=== PATIENT | male | born 1950 | race Caucasian/White ===

== ENCOUNTER 2020-10-15 07:40 | Emergency (ER) | payer MEDICARE ==
[~2020-10-15 07:40] MED LIST: CARDURA2 MG PO; PERCOCET 5-3251 EACH PO; POTASSIUM99 MG PO; VITAMIN B122500 MC1 PO
[2020-10-15 08:43] LABS: BASOPHIL 0.4 % (0-2); EOSINOPHIL 0.5 % (0-7); HGB 14.4 g/dl (13.2-18.0); LYMPHOCYTE 7.6 % (15-48); MCH 31.2 pg (25.0-31.0); MCHC 34.3 g/dL (32.0-36.0); MCV 91.1 fL (78.0-100.0); MONOCYTE 6.7 % (0-12); MPV 11.4 fL (6.0-9.5); NEUTROPHIL 84.4 % (41-80); NRBC 0; PLT 217 K/uL (150-400); RBC 4.61 M/uL (4.70-6.00); RDW 11.3 % (11.5-14.0); WBC 18.1 K/uL (4.0-10.5)
[2020-10-15 08:48] LABS: INR 1.05 (0.9-1.2); PTT 30.3 SECONDS (22.2-34.7)
[2020-10-15 08:55] LABS: ALBUMIN 3.6 g/dL (3.4-5.0); BILIRUBIN - TOTAL 0.4 mg/dL (0.2-1.0); BUN/CREAT RATIO (CALC) 9.2 RATIO; CREATININE 0.76 mg/dL (0.67-1.17); GLOBULIN (CALCULATION) 3.9 g/dL; IRON % SATURATION 18.1 %SAT (20-50); TOTAL PROTEIN 7.5 g/dL (6.4-8.2)
[2020-10-15 09:09] LABS: LACTIC ACID 1.2 mmol/L (0.4-1.9)
[2020-10-15 10:12] LABS: BILIRUBIN NEGATIVE (NEGATIVE); BLOOD NEGATIVE Ery/uL (NEGATIVE); CLARITY CLEAR (CLEAR); COLOR YELLOW (YELLOW); GLUCOSE (U) NORMAL (NORMAL); LEUKOCYTES NEGATIVE Leu/uL (NEGATIVE); NITRITE NEGATIVE (NEGATIVE); PROTEIN NEGATIVE (NEGATIVE); UROBILINOGEN 0.2 mg/dL (0.2-1.0)
[2020-11-08] MEDS ORDERED: FOLIC ACID1 MG PO (08:41)
[2020-11-08] MEDS ORDERED: LOVASTATIN10 MG PO (08:41)
[2020-11-08] MEDS ORDERED: CARAFATE1 GM PO (08:42)
[2020-11-08] MEDS ORDERED: OXYCODON-ACETA1 EAC1 PO (08:43)
[2020-11-08] MEDS ORDERED: VITAMIN B-121000 MC1 PO (08:44)
[2020-11-08] MEDS ORDERED: FLONASE ALLER15.8 ML (08:45)
== END 2020-10-15 13:00 | disposition other institution (70) ==
LOC: FER 07:40
PROVIDERS: Emergency Medicine
DX: K27.0 Acute peptic ulcer, site unspecified, with hemorrhage (principal); I10 Essential (primary) hypertension; J44.9 Chronic obstructive pulmonary disease, unspecified; Z87.891 Personal history of nicotine dependence; Z20.822 Contact with and (suspected) exposure to COVID-19
CPT/HCPCS: 36415; 71045; 80053; 81003; 83540; 83550; 83605; 83690; 84145; 85025; 85610; 85730; 86850; 86900; 86901; 93005; C9113; J1170; J2405; J7030; Q9967; U0002

== ENCOUNTER → 2020-11-11 | Day surgery (SDC) | payer MEDICARE ==
[~2020-11-11] MED LIST changes: +ARNUITY ELLIPT50 MCG; +B COMPLEX1 EACH PO; +CARAFATE1 GM PO; +COMPAZINE10 MG PO; +CYCLOBENZAPRINE10 MG PO; +DEXAMETHASONE 2M2 MG PO; +FLONASE ALLER15.8 ML; +FOLIC ACID1 MG PO; +LASIX20 MG PO; +LOVASTATIN10 MG PO; +OXYCODON-ACETA1 EAC1 PO; +PERCOCET 7.5-31 EACH PO; +POTASSIUM20 MEQ/11 PO; +PROTONIX 40MG T40 MG PO; +VITAMIN B-121000 MC1 PO
[2020-11-11 11:45] LABS: BUN/CREAT RATIO (CALC) 17.4 RATIO; CREATININE 0.69 mg/dL (0.67-1.17); POTASSIUM 4.2 mmol/L (3.5-5.1)
== END | disposition home or self-care (01) ==
LOC: FAS 10:34
PROVIDERS: Anesthesiology
DX: C16.9 Malignant neoplasm of stomach, unspecified (principal); I10 Essential (primary) hypertension; E78.5 Hyperlipidemia, unspecified; M10.9 Gout, unspecified; I73.9 Peripheral vascular disease, unspecified
CPT/HCPCS: 36415; 71045; 76000; 80048; C1788; J0640; J0690; J1453-JG; J1644; J2001; J2250; J2370; J2405; J2704; J3010; J7050; J7060; J7120; J9171; J9190; J9263

== ENCOUNTER 2020-11-26 14:06 | Inpatient (IN) | payer MEDICARE ==
[~2020-11-26] VITALS: Ht 180.3 cm; Wt 79.5 kg
[~2020-11-26 14:06] MED LIST changes: -ARNUITY ELLIPT50 MCG; -B COMPLEX1 EACH PO; -COMPAZINE10 MG PO; -CYCLOBENZAPRINE10 MG PO; -DEXAMETHASONE 2M2 MG PO; -LASIX20 MG PO; -PERCOCET 7.5-31 EACH PO; -POTASSIUM20 MEQ/11 PO; -PROTONIX 40MG T40 MG PO
[2020-11-26 15:57] LABS: EOSINOPHIL 0 % (0-7); HCT 33.1 % (42.0-52.0); LYMPHOCYTE 15.4 % (15-48); MCH 29.8 pg (25.0-31.0); MCHC 33.2 g/dL (32.0-36.0); MCV 89.7 fL (78.0-100.0); MPV 11.2 fL (6.0-9.5); NEUTROPHIL 49.8 % (41-80); NRBC 0; PLT 188 K/uL (150-400); RBC 3.69 M/uL (4.70-6.00); RDW 11.3 % (11.5-14.0)
[2020-11-26 15:58] LABS: WBC 6.8 K/uL (4.0-10.5)
[2020-11-26 15:59] LABS: MONOCYTE 32.3 % (0-12)
[2020-11-26 16:22] LABS: ALBUMIN 2.6 g/dL (3.4-5.0); BILIRUBIN - TOTAL 0.4 mg/dL (0.2-1.0); CREATININE 0.57 mg/dL (0.67-1.17); GLOBULIN (CALCULATION) 3.9 g/dL; LACTIC ACID 1.2 mmol/L (0.4-1.9); MAGNESIUM 1.9 mg/dL (1.8-2.4); POTASSIUM 4.3 mmol/L (3.5-5.1); TOTAL PROTEIN 6.5 g/dL (6.4-8.2)
[2020-11-26 22:45] LABS: BILIRUBIN 2+ mg/dL (NEGATIVE); BLOOD NEGATIVE Ery/uL (NEGATIVE); CLARITY CLEAR (CLEAR); COLOR YELLOW (YELLOW); GLUCOSE (U) NORMAL (NORMAL); LEUKOCYTES NEGATIVE Leu/uL (NEGATIVE); NITRITE NEGATIVE (NEGATIVE); PROTEIN 1+ mg/dL (NEGATIVE); SPECIFIC GRAVITY >=1.030 (1.001-1.030); UROBILINOGEN 0.2 mg/dL (0.2-1.0)
[2020-11-26 22:51] LABS: BACTERIA TRACE; URINARY WBC RARE
[2020-11-26 22:52] LABS: AMORPHOUS URATES CRYSTALS TRACE
[2020-11-27 05:33] LABS: BASOPHIL 0.7 % (0-2); EOSINOPHIL 0.3 % (0-7); HCT 27.6 % (42.0-52.0); HGB 9.4 g/dl (13.2-18.0); LYMPHOCYTE 15.5 % (15-48); MCH 30.4 pg (25.0-31.0); MCHC 34.1 g/dL (32.0-36.0); MCV 89.3 fL (78.0-100.0); MPV 10.7 fL (6.0-9.5); NEUTROPHIL 55.5 % (41-80); NRBC 0; PLT 155 K/uL (150-400); RBC 3.09 M/uL (4.70-6.00); RDW 11.4 % (11.5-14.0); WBC 7.3 K/uL (4.0-10.5)
[2020-11-27 05:36] LABS: MONOCYTE 25.2 % (0-12)
[2020-11-27 05:49] LABS: BILIRUBIN - TOTAL 0.3 mg/dL (0.2-1.0); BUN/CREAT RATIO (CALC) 15.7 RATIO; CREATININE 0.51 mg/dL (0.67-1.17); GLOBULIN (CALCULATION) 3.2 g/dL; POTASSIUM 3.7 mmol/L (3.5-5.1); TOTAL PROTEIN 5.2 g/dL (6.4-8.2)
[2020-11-28 04:53] LABS: HCT 27.5 % (42.0-52.0); HGB 9.3 g/dl (13.2-18.0); MCH 29.9 pg (25.0-31.0); MCHC 33.8 g/dL (32.0-36.0); MCV 88.4 fL (78.0-100.0); MPV 10.7 fL (6.0-9.5); RBC 3.11 M/uL (4.70-6.00); RDW 11.7 % (11.5-14.0); WBC 9.7 K/uL (4.0-10.5)
[2020-11-28 05:09] LABS: CREATININE 0.46 mg/dL (0.67-1.17); POTASSIUM 3.5 mmol/L (3.5-5.1)
[2020-11-29 05:42] LABS: BASOPHIL 0.4 % (0-2); EOSINOPHIL 0.2 % (0-7); HGB 9.5 g/dl (13.2-18.0); LYMPHOCYTE 16.6 % (15-48); MCH 29.6 pg (25.0-31.0); MCHC 33.9 g/dL (32.0-36.0); MCV 87.2 fL (78.0-100.0); MONOCYTE 16.2 % (0-12); MPV 10.8 fL (6.0-9.5); NEUTROPHIL 60.2 % (41-80); NRBC 0; PLT 175 K/uL (150-400); RBC 3.21 M/uL (4.70-6.00); RDW 11.7 % (11.5-14.0); WBC 11.2 K/uL (4.0-10.5)
[2020-11-29 06:17] LABS: CREATININE 0.5 mg/dL (0.67-1.17)
[2020-11-30 09:57] LABS: BASOPHIL 0.9 % (0-2); EOSINOPHIL 0.2 % (0-7); HCT 30.9 % (42.0-52.0); HGB 10.7 g/dl (13.2-18.0); LYMPHOCYTE 16.1 % (15-48); MCH 29.9 pg (25.0-31.0); MCHC 34.6 g/dL (32.0-36.0); MCV 86.3 fL (78.0-100.0); MONOCYTE 12.5 % (0-12); MPV 10.9 fL (6.0-9.5); NEUTROPHIL 62.3 % (41-80); NRBC 0; PLT 209 K/uL (150-400); RBC 3.58 M/uL (4.70-6.00); RDW 11.9 % (11.5-14.0)
[2020-11-30 10:09] LABS: BUN/CREAT RATIO (CALC) 12.2 RATIO; CREATININE 0.49 mg/dL (0.67-1.17); POTASSIUM 3.1 mmol/L (3.5-5.1)
[2020-11-30 10:12] LABS: WBC 13.2 K/uL (4.0-10.5)
== END 2020-12-01 14:10 | disposition other institution (70) | DRG 374 ==
LOC: FER 14:06 → FMS 18:07 → FER 18:07 → FMS 18:07
PROVIDERS: Allergy & Immunology Allergy; Emergency Medicine; Nurse Practitioner; ADMIT Hospitalist
DX: C16.4 Malignant neoplasm of pylorus (principal); K25.4 Chronic or unspecified gastric ulcer with hemorrhage; K31.1 Adult hypertrophic pyloric stenosis; Z20.822 Contact with and (suspected) exposure to COVID-19; E86.0 Dehydration; K29.50 Unspecified chronic gastritis without bleeding; N40.0 Benign prostatic hyperplasia without lower urinary tract symptoms; I10 Essential (primary) hypertension; D64.9 Anemia, unspecified; Z96.651 Presence of right artificial knee joint; Z98.890 Other specified postprocedural states; Z88.8 Allergy status to other drugs, medicaments and biological substances; Z92.21 Personal history of antineoplastic chemotherapy; Z79.51 Long term (current) use of inhaled steroids; Z79.899 Other long term (current) drug therapy; Z85.6 Personal history of leukemia; Z90.89 Acquired absence of other organs; Z87.891 Personal history of nicotine dependence; Z95.828 Presence of other vascular implants and grafts
CPT/HCPCS: 36415; 71045; 80048; 80053; 81001; 83605; 83690; 83735; 85025; 87088; 94010; 97162; 97530-GP; C9113; G0378; J1642; J1650; J2405; J3480; J7030; J7120; Q9967; U0002

== ENCOUNTER 2021-01-05 08:56 | Inpatient (IN) | payer MEDICARE ==
[~2021-01-05] VITALS: Ht 180.3 cm; Wt 85.0 kg
[2021-01-05 09:55] LABS: INR 1.88 (0.9-1.2); PROTHROMBIN TIME 20.8 SECONDS (11.8-13.4)
[2021-01-05 09:56] LABS: ALBUMIN 1.6 g/dL (3.4-5.0); BILIRUBIN - TOTAL 0.4 mg/dL (0.2-1.0); BUN/CREAT RATIO (CALC) 16.9 RATIO; CREATININE 0.59 mg/dL (0.67-1.17); GLOBULIN (CALCULATION) 3.1 g/dL; MAGNESIUM 1.3 mg/dL (1.8-2.4); POTASSIUM 3.3 mmol/L (3.5-5.1); PTT 40.5 SECONDS (24.4-34.7); TOTAL PROTEIN 4.7 g/dL (6.4-8.2)
[2021-01-05 09:56] LABS: BASOPHIL 0 % (0-2); EOSINOPHIL 0 % (0-7); HCT 26.8 % (42.0-52.0); HGB 9.2 g/dl (13.2-18.0); MCH 29.6 pg (25.0-31.0); MCHC 34.3 g/dL (32.0-36.0); MCV 86.2 fL (78.0-100.0); MONOCYTE 9.3 % (0-12); MPV 12.2 fL (6.0-9.5); NEUTROPHIL 4.7 % (41-80); NRBC 0; RBC 3.11 M/uL (4.70-6.00); RDW 14.1 % (11.5-14.0)
[2021-01-05 10:05] LABS: PLT 27 K/uL (150-400); WBC 0.4 K/uL (4.0-10.5)
[2021-01-05 11:40] LABS: BILIRUBIN 1+ mg/dL (NEGATIVE); BLOOD 1+ Ery/uL (NEGATIVE); CLARITY CLEAR (CLEAR); GLUCOSE (U) NORMAL (NORMAL); LEUKOCYTES NEGATIVE Leu/uL (NEGATIVE); NITRITE NEGATIVE (NEGATIVE); PROTEIN 2+ mg/dL (NEGATIVE); SPECIFIC GRAVITY 1.025 (1.001-1.030)
[2021-01-05 11:44] LABS: COLOR AMBER (YELLOW)
[2021-01-05 12:03] LABS: LACTIC ACID 1.6 mmol/L (0.4-1.9)
[2021-01-05 12:56] LABS: BACTERIA TRACE
[2021-01-05] MEDS ORDERED: CYCLOBENZAPRINE10 MG PO (13:17)
[2021-01-05] MEDS ORDERED: ARNUITY ELLIPT50 MCG (13:17)
[2021-01-05] MEDS ORDERED: POTASSIUM20 MEQ/11 PO (13:18)
[2021-01-05] MEDS ORDERED: PROTONIX 40MG T40 MG PO (13:19)
[2021-01-05] MEDS ORDERED: CARAFATE1 GM PO (13:20)
[2021-01-05] MEDS ORDERED: B COMPLEX1 EACH PO (13:20)
[2021-01-05] MEDS ORDERED: LASIX20 MG PO (13:21)
[2021-01-05] MEDS ORDERED: PERCOCET 7.5-31 EACH PO (13:22)
[2021-01-05] MEDS ORDERED: COMPAZINE10 MG PO (13:23)
[2021-01-05] MEDS ORDERED: FOLIC ACID1 MG PO (13:23)
[2021-01-05] MEDS ORDERED: DEXAMETHASONE 2M2 MG PO (13:23)
--- NOTE | 2021-01-06 16:28 | NUR ---
01/06/21 Mr. Snider is now a DNR. He is not expected to survive. Emotional support is being provided with family.
[2021-01-07 05:33] LABS: BASOPHIL 0 % (0-2); HCT 24.8 % (42.0-52.0); HGB 7.9 g/dl (13.2-18.0); LYMPHOCYTE 79.6 % (15-48); MCHC 31.9 g/dL (32.0-36.0); MONOCYTE 16.3 % (0-12); NEUTROPHIL 2.1 % (41-80); NRBC 4.1; RBC 2.72 M/uL (4.70-6.00); RDW 15.1 % (11.5-14.0)
[2021-01-07 05:44] LABS: BUN/CREAT RATIO (CALC) 24.3 RATIO; CREATININE 1.03 mg/dL (0.67-1.17); POTASSIUM 3.5 mmol/L (3.5-5.1)
[2021-01-07 05:48] LABS: MCV 91.2 fL (78.0-100.0); WBC 0.5 K/uL (4.0-10.5)
[2021-01-07 05:50] LABS: PLT 1 K/uL (150-400)
--- NOTE | 2021-01-07 09:47 | NUR ---
0830 PATIENT UNRESPONSIVE TO VERBAL AND PHYSICAL STIMULI. BP 84/50, HR 122. MD NOTIFIED OF PATIENT STATUS. MD AT BEDSIDE. NO NEW ORDERS.
--- NOTE | 2021-01-07 10:59 | NUR ---
1050 PATIENT RECEIVING PLATELETS, BP 62/38, HR 129, RR 32, PATIENT UNRESPONSIVE TO PAINFUL STIMULI. MD NOTIFIED. IS UNACCEPTING OF PATIENT ACTIVELY DYING. BRYON NOTIFIED.
--- NOTE | 2021-01-07 16:43 | NUR ---
1600 PATIENT ONLY VOIDED 100 VIA RAMSAY CATH THIS SHIFT, BP 71/44 HR 119, RR 26. MD NOTIFIED VIA TELEPHONE, NO NEW ORDERS AT THIS TIME
[2021-01-08 05:59] LABS: BASOPHIL 1.1 % (0-2); EOSINOPHIL 1.1 % (0-7); HCT 21.9 % (42.0-52.0); HGB 6.9 g/dl (13.2-18.0); MCH 28.8 pg (25.0-31.0); MCHC 31.5 g/dL (32.0-36.0); MCV 91.3 fL (78.0-100.0); MONOCYTE 13.5 % (0-12); NEUTROPHIL 40.4 % (41-80); NRBC 5.6; RDW 15.8 % (11.5-14.0)
[2021-01-08 06:10] LABS: BUN/CREAT RATIO (CALC) 20.9 RATIO; CREATININE 1.91 mg/dL (0.67-1.17); POTASSIUM 3.2 mmol/L (3.5-5.1)
[2021-01-08 06:13] LABS: PLT 3 K/uL (150-400)
[2021-01-08 06:14] LABS: WBC 0.9 K/uL (4.0-10.5)
--- NOTE | 2021-01-08 09:48 | NUR ---
PT AT 914. DR. ALFARO PRONOUNCED . FAMILY AT BEDSIDE.
--- NOTE | 2021-01-08 11:58 | NUR ---
HOME ARRIVED AT 1155, BODY HAS BEEN CLEANED BY 2 RNS
== END 2021-01-08 12:13 | disposition expired | DRG 871 ==
LOC: FER 08:56 → FTCU 11:37
PROVIDERS: Emergency Medicine; ADMIT Internal Medicine
PROC: 30233R1 Transfusion of Nonautologous Platelets into Peripheral Vein, Percutaneous Approach (ICD-10-PCS; principal; 2021-01-07)
DX: A41.9 Sepsis, unspecified organism (principal); J18.9 Pneumonia, unspecified organism; Z20.822 Contact with and (suspected) exposure to COVID-19; I63.532 Cerebral infarction due to unspecified occlusion or stenosis of left posterior cerebral artery; J96.01 Acute respiratory failure with hypoxia; R65.20 Severe sepsis without septic shock; N17.0 Acute kidney failure with tubular necrosis; R40.20 Unspecified coma; C16.9 Malignant neoplasm of stomach, unspecified; D61.818 Other pancytopenia; R00.0 Tachycardia, unspecified; D70.9 Neutropenia, unspecified; D69.59 Other secondary thrombocytopenia; T45.1X5A Adverse effect of antineoplastic and immunosuppressive drugs, initial encounter; R50.81 Fever presenting with conditions classified elsewhere; Z66 Do not resuscitate; Z51.5 Encounter for palliative care
CPT/HCPCS: 36415; 36430; 70450; 71045; 80048; 80053; 81001; 83605; 83735; 84145; 85025; 85610; 85730; 86900; 86901; 87040; 87088; 93005; 94640; C9113; J0692; J0780; J1170; J2270; J2405; J3475; J3480; J7030; J7070; P9035; U0002